=== PATIENT | female | born 1965 | race Caucasian/White ===

== ENCOUNTER 2021-03-05 12:51 | Outpatient (CLI) | payer MEDICARE, SELFPAY ==
[2021-03-07 20:58] LABS: PCP NEGATIVE ng/mL (<25)
[2021-03-21 12:12] LABS: Marijuana Metabolites NEGATIVE
[2021-03-21 12:13] LABS: Amphetamines NEGATIVE
[2021-03-21 12:14] LABS: Barbiturates NEGATIVE; Benzodiazepines POSITIVE
[2021-03-21 12:15] LABS: Cocaine Metabolites NEGATIVE
== END 2021-03-05 12:52 | disposition home or self-care (01) ==
LOC: ANHLAB 13:01
PROVIDERS: PCP Internal Medicine; Visit Provider Internal Medicine
DX: Z79.891 Long term (current) use of opiate analgesic (principal)
CPT/HCPCS: 80307